=== PATIENT | female | born 1970 | race Caucasian/White ===

== ENCOUNTER 2017-08-03 13:30 | Outpatient (CLI) | payer BC | END 2017-08-03 13:31 | disposition home or self-care (01) | LOC: ULT 13:30 | PROVIDERS: ATTEND Family Medicine | DX: R00.2 Palpitations (principal); I08.8 Other rheumatic multiple valve diseases | CPT/HCPCS: 93306 ==

== ENCOUNTER 2017-12-08 10:24 | Outpatient (CLI) | payer BC ==
[2017-12-08] MEDS ORDERED: ISOVUE-370 76%-LOCM 1 ML ONE (13:30)
--- NOTE | 2017-12-08 16:45 | CT ---
CTA CHEST WITH AND WITHOUT IV CONTRAST AND 3D POSTPROCESSIN12/08/17 The 47-year-old female with abnormal cardiovascular function study and heart palpitations, essential hypertension. FINDINGS: No coronary artery calcifications are seen. The total calcium score is 0. There is good opacification of the coronary artery vascular system with good flow and no significant stenosis in the left main, LAD, diagonals, LCX, OM, RCA and PDA. Quantitative left ventricular function measurements are as follows: Ejection fracture: 67%. End diastolic volume: 157 mL. Systolic volume: 52 mL. Stroke volume: 105 mL per minute. Cardiac output: 6.9 liters per minute. Myocardial mass: 121 grams. No pleural or pericardial effusions are identified. No evidence of thoracic aortic aneurysm is seen. There are mild degenerative changes in the spine. The visualized lung haque are unremarkable. IMPRESSION: Normal CT coronary arteriogram. POS: JOHANNY
== END 2017-12-08 10:25 | disposition home or self-care (01) ==
LOC: BICCT 10:24
PROVIDERS: ATTEND Internal Medicine Cardiovascular Disease
DX: I10 Essential (primary) hypertension (principal); R94.30 Abnormal result of cardiovascular function study, unspecified; R00.2 Palpitations
CPT/HCPCS: 75574

== ENCOUNTER 2024-01-26 15:27 | Outpatient (CLI) | payer BC | END 2024-01-26 15:28 | disposition home or self-care (01) | LOC: BICRAD 15:27 | PROVIDERS: ATTEND Internal Medicine | DX: K59.00 Constipation, unspecified (principal); R10.84 Generalized abdominal pain | CPT/HCPCS: 74019 ==